=== PATIENT | male | born 1985 | race Caucasian/White ===

== ENCOUNTER → 2016-09-30 | Outpatient (CLI) | payer OTHER ==
[~2016-09-30] MED LIST: APIDRA100 UNITS/ SQ; HUMALOG SQ; HUMALOG100 UNIT/1 SQ; LANTUS100 UNITS/ SQ; LEVEMIR100 UNIT/1 SQ; NICODERM CQ1 EAC1 TP; NOVOLOG100 UNIT/2 SQ; PEPCID DPS20 MG PO; PROCTOSOL-HC28.35 GM TP; TYLENOL DPS325 MG PO
== END | disposition home or self-care (01) ==
LOC: PTH.S 06-30 10:45
DX: E11.9 Type 2 diabetes mellitus without complications (principal)